=== PATIENT | female | born 1950 | race Two or more races ===

== ENCOUNTER → 2018-11-16 | Outpatient (CLI) | payer MEDICARE, OTHER | LOC: YHH 11:36 ==

== ENCOUNTER → 2024-02-02 | Day surgery (SDC) | payer MEDICARE, OTHER ==
[2024-02-02 12:52] LABS: CHLORIDE 101 mmol/L (98-107); POTASSIUM 5.1 mmol/L (3.5-5.1); SODIUM 141 mmol/L (136-145)
[2024-02-02 12:56] LABS: ALBUMIN 3.8 g/dl (3.4-5.0); CALCIUM 9.4 mg/dL (8.5-10.1)
[2024-02-02 12:57] LABS: ANION GAP 9 mmol/L (4-13); BLOOD UREA NITROGEN 15.1 mg/dL (7-18); CO2 31 mmol/L (21-32); GLUCOSE,RANDOM 221 mg/dL (74-106)
[2024-02-02 13:00] LABS: CHOLESTEROL 162 mg/dL (50-200); CREATININE 1.1 mg/dL (0.55-1.3); SGOT/AST 10 U/L (15-37); SGPT/ALT 25 U/L (13-61)
[2024-02-02 13:01] LABS: BILIRUBIN,TOTAL 0.4 mg/dL (0.2-1); LDL CHOLESTEROL (ONLY SJRH) 88 mg/dL (5-100); TOT PROT 8.2 g/dl (6.4-8.2)
[2024-02-02 13:02] LABS: ALK PHOS 52 U/L (45-117); HDL CHOLESTEROL 47 mg/dL (40-60)
== END | disposition home or self-care (01) ==
LOC: JRADIR 10:18
PROVIDERS: ATTEND Internal Medicine Endocrinology, Diabetes & Metabolism
PROC: 0G9G3ZX Drainage of Left Thyroid Gland Lobe, Percutaneous Approach, Diagnostic (ICD-10-PCS; principal; 2024-02-02)
DX: E04.1 Nontoxic single thyroid nodule (principal)
CPT/HCPCS: 10005; 36415; 76942; 80053; 80061; 82043; 82570; 83036; 84443; 88173; 88305-TC